=== PATIENT | male | born 1930 | race Caucasian/White ===

== ENCOUNTER 2022-06-21 09:28 | Emergency (ER) | payer OTHER ==
--- OUTSIDE RECORDS SUMMARY | 2022-06-21 09:32 | XMS REPORT | Continuity of Care Document ---
:1930 Author Organization [facility] t Address [address] [place] [address] Care Team Providers Name Role Phone Jacob Neal Attending Clinician Unavailable Ajibade_O_AH Attending Clinician Unavailable Ige-Odunuga_J_AH Attending Clinician Unavailable Ajibade_O_AH Admitting Clinician Unavailable Ige-Odunuga_J_AH Admitting Clinician Unavailable Payers Payer Name Policy Type Policy Number Effective Date Expiration Date S [place] [id number] 2020 [facility] 00:[facility]:00 [place] [id number] [id number] 2020 [facility] 00:00:00 [facility] [place] [id number] 2019 - [employer] 00:00:00 (MEDICARE REPLACEMENT/ADV ANTAGE - HMO) Problems Condition Condition Condition Status Onset Resolution Last Treating Co mments Source Name Details Category Date Date Treatment Clinician Date [id number] Hypothyroi Problem Active Co mmon dism [facility] (acquired) - [facility] [id number] Essential Problem Active Comm on hypertensi Spirit on [facility] [id number] 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 Social History Social Habit Start Date Stop Date Quantity Comments Source History of Tobacco Use Co mmon [facility] Sex Assigned At Com mon [facility] Smoking Status Start Date Stop Date Source Never Smoker Common [facility] Medications Ordered Filled Start Stop Current Ordering Indication Dosage Frequency Signature Comments Components Source Medication Medication Date Date Medication? Clinician (SIG) Name Name Vitamin B12 Vitamin B12 No 1000ug Common (Cyanocobal (Cyanocobal 9-16 S pirit jules) jules) 00:00: [facility] Vitamin B12 Vitamin B12 No 1000ug Common (Cyanocobal (Cyanocobal 9-16 S pirit jules) jules) 00:00: [facility] Vitamin B12 Vitamin B12 No 1000ug Common (Cyanocobal (Cyanocobal 9-16 S pirit jules) jules) 00:00: [facility] Vitamin B12 Vitamin B12 No 1000ug Common (Cyanocobal (Cyanocobal 9-16 S pirit jules) jules) 00:00: - [facility] Primatene Primatene No 1{puff} Primatene Mist 0.125 Mist 0.125 7-12 Mist 0.125 MG/ACT MG/ACT 00:00: MG/ACT 00 Primatene Primatene No 1{puff} Primatene Mist 0.125 Mist 0.125 7-12 Mist 0.125 MG/ACT MG/ACT 00:00: MG/ACT 00 Primatene Primatene No 1{puff} Primatene Mist 0.125 Mist 0.125 7-12 Mist 0.125 MG/ACT MG/ACT 00:00: MG/ACT 00 Primatene Primatene No 1{puff} Primatene Mist 0.125 Mist 0.125 7-12 Mist 0.125 MG/ACT MG/ACT 00:00: MG/ACT 00 Primatene Primatene No 1{puff} Primatene Mist 0.125 Mist 0.125 7-12 Mist 0.125 MG/ACT MG/ACT 00:00: MG/ACT 00 Primatene Primatene No 1{puff} Primatene Mist 0.125 Mist 0.125 7-12 Mist 0.125 MG/ACT MG/ACT 00:00: MG/ACT 00 Primatene Primatene 2020-0 No 1{puff} Primatene Mist 0.125 Mist 0.125 7-12 Mist 0.125 MG/ACT MG/ACT 00:00: MG/ACT 00 Vitamin B12 Vitamin B12 2020-0 No 1000ug Common (Cyanocobal (Cyanocobal 6-18 S pirit jules) jules) 00:00: - [facility] Vitamin B12 Vitamin B12 2020-0 No 1000ug Common (Cyanocobal (Cyanocobal 6-18 S pirit jules) jules) 00:00: - [facility] Vitamin B12 Vitamin B12 2020-0 No 1000ug Common (Cyanocobal (Cyanocobal 6-18 S pirit jules) jules) 00:00: - [facility] Vitamin B12 Vitamin B12 0 No 1000ug Common (Cyanocobal (Cyanocobal 6-18 S pirit jules) jules) 00:00: - [facility] Lisinopril Lisinopril No Lisinopril 20 MG 20 MG 20 MG Lisinopril Lisinopril No 1{table QD Lisinopril 30 MG 30 MG t} 30 MG Metoprolol Metoprolol No 1{table BID Metoprolol Tartrate 25 Tartrate 25 t_with_ Tartrate MG MG food} 25 MG Levothyroxi Levothyroxi No Levothyrox ne Sodium ne Sodium ine Sodium 50 MCG 50 MCG 50 MCG Clopidogrel Clopidogrel No 1{table QD Clopidogre Bisulfate Bisulfate t} l 75 MG 75 MG Bisulfate 75 MG Levothyroxi Levothyroxi No QD Levothyrox ne Sodium ne Sodium ine Sodium 50 MCG 50 MCG 50 MCG Cyanocobala Cyanocobala No Cyanocobal min 1000 min 1000 jules 1000 MCG/ML MCG/ML MCG/ML Pravastatin Pravastatin No 1{table QD Pravastati Sodium 40 Sodium 40 t} n Sodium MG MG 40 MG Lisinopril Lisinopril No Lisinopril 30 MG 30 MG 30 MG Cyanocobala Cyanocobala No Cyanocobal min 1000 min 1000 jules 1000 MCG/ML MCG/ML MCG/ML Sunnyvale & Sunnyvale & No QD [place] & Syringes - Syringes - Syringes - Lisinopril Lisinopril No Lisinopril 30 MG 30 MG 30 MG Lisinopril Lisinopril No Lisinopril 20 MG 20 MG 20 MG [place] & [place] & No QD [place] & Syringes - Syringes - Syringes - Levothyroxi Levothyroxi No QD Levothyrox ne Sodium ne Sodium ine Sodium 50 MCG 50 MCG 50 MCG Lisinopril Lisinopril No 1{table Lisinopril 10 MG 10 MG t} 10 MG Lisinopril Lisinopril No 1{table QD Lisinopril 30 MG 30 MG t} 30 MG Cyanocobala Cyanocobala No Cyanocobal min 1000 min 1000 jules 1000 MCG/ML MCG/ML MCG/ML Clopidogrel Clopidogrel No 1{table QD Clopidogre Bisulfate Bisulfate t} l 75 MG 75 MG Bisulfate 75 MG Pravastatin Pravastatin No 1{table QD Pravastati Sodium 40 Sodium 40 t} n Sodium MG MG 40 MG Metoprolol Metoprolol No Metoprolol Tartrate 25 Tartrate 25 Tartrate MG MG 25 MG Metoprolol Metoprolol No 1{table BID Metoprolol Tartrate 25 Tartrate 25 t_with_ Tartrate MG MG food} 25 MG Levothyroxi Levothyroxi No Levothyrox ne Sodium ne Sodium ine Sodium 50 MCG 50 MCG 50 MCG Cyanocobala Cyanocobala No Cyanocobal min 1000 min 1000 jules 1000 MCG/ML MCG/ML MCG/ML Lisinopril Lisinopril No Lisinopril 30 MG 30 MG 30 MG Lisinopril Lisinopril No Lisinopril 20 MG 20 MG 20 MG Sunnyvale & Sunnyvale & No QD [place] & Syringes - Syringes - Syringes - Levothyroxi Levothyroxi No QD Levothyrox ne Sodium ne Sodium ine Sodium 50 MCG 50 MCG 50 MCG Lisinopril Lisinopril No 1{table Lisinopril 10 MG 10 MG t} 10 MG Lisinopril Lisinopril No 1{table QD Lisinopril 30 MG 30 MG t} 30 MG Cyanocobala Cyanocobala No Cyanocobal min 1000 min 1000 jules 1000 MCG/ML MCG/ML MCG/ML Clopidogrel Clopidogrel No 1{table QD Clopidogre Bisulfate Bisulfate t} l 75 MG 75 MG Bisulfate 75 MG Pravastatin Pravastatin No 1{table QD Pravastati Sodium 40 Sodium 40 t} n Sodium MG MG 40 MG Metoprolol Metoprolol No Metoprolol Tartrate 25 Tartrate 25 Tartrate MG MG 25 MG Metoprolol Metoprolol No 1{table BID Metoprolol Tartrate 25 Tartrate 25 t_with_ Tartrate MG MG food} 25 MG Levothyroxi Levothyroxi No Levothyrox ne Sodium ne Sodium ine Sodium 50 MCG 50 MCG 50 MCG Cyanocobala Cyanocobala No Cyanocobal min 1000 min 1000 jules 1000 MCG/ML MCG/ML MCG/ML Pravastatin Pravastatin No 1{table QD Pravastati Sodium 40 Sodium 40 t} n Sodium MG MG 40 MG Levothyroxi Levothyroxi No Levothyrox ne Sodium ne Sodium ine Sodium 50 MCG 50 MCG 50 MCG Lisinopril Lisinopril No 1{table Lisinopril 10 MG 10 MG t} 10 MG Metoprolol Metoprolol No Metoprolol Tartrate 25 Tartrate 25 Tartrate MG MG 25 MG Lisinopril Lisinopril No 1{table QD Lisinopril 30 MG 30 MG t} 30 MG Cyanocobala Cyanocobala No Cyanocobal min 1000 min 1000 jules 1000 MCG/ML MCG/ML MCG/ML Lisinopril Lisinopril No Lisinopril 20 MG 20 MG 20 MG Clopidogrel Clopidogrel No 1{table QD Clopidogre Bisulfate Bisulfate t} l 75 MG 75 MG Bisulfate 75 MG Sunnyvale & Sunnyvale & No QD [place] & Syringes - Syringes - Syringes - Levothyroxi Levothyroxi No QD Levothyrox ne Sodium ne Sodium ine Sodium 75 MCG 75 MCG 75 MCG Lisinopril Lisinopril No Lisinopril 30 MG 30 MG 30 MG Cyanocobala Cyanocobala No Cyanocobal min 1000 min 1000 jules 1000 MCG/ML MCG/ML MCG/ML Levothyroxi Levothyroxi No QD Levothyrox ne Sodium ne Sodium ine Sodium 75 MCG 75 MCG 75 MCG Levothyroxi Levothyroxi No Levothyrox ne Sodium ne Sodium ine Sodium 50 MCG 50 MCG 50 MCG Lisinopril Lisinopril No 1{table Lisinopril 10 MG 10 MG t} 10 MG Sunnyvale & Sunnyvale & No QD [place] & Syringes - Syringes - Syringes - Lisinopril Lisinopril No 1{table QD Lisinopril 30 MG 30 MG t} 30 MG Cyanocobala Cyanocobala No Cyanocobal min 1000 min 1000 jules 1000 MCG/ML MCG/ML MCG/ML Lisinopril Lisinopril No Lisinopril 30 MG 30 MG 30 MG Lisinopril Lisinopril No Lisinopril 20 MG 20 MG 20 MG Pravastatin Pravastatin No 1{table QD Pravastati Sodium 40 Sodium 40 t} n Sodium MG MG 40 MG Cyanocobala Cyanocobala No Cyanocobal min 1000 min 1000 jules 1000 MCG/ML MCG/ML MCG/ML Metoprolol Metoprolol No Metoprolol Tartrate 25 Tartrate 25 Tartrate MG MG 25 MG Clopidogrel Clopidogrel No 1{table QD Clopidogre Bisulfate Bisulfate t} l 75 MG 75 MG Bisulfate 75 MG Pravastatin Pravastatin No Pravastati Sodium 40 Sodium 40 n Sodium MG MG 40 MG Lisinopril Lisinopril No Lisinopril 30 MG 30 MG 30 MG Metoprolol Metoprolol No 1{table BID Metoprolol Tartrate 25 Tartrate 25 t_with_ Tartrate MG MG food} 25 MG Sunnyv[place] & Sunnyv[place] & No QD [place] & Syringes - Syringes - Syringes - Clopidogrel Clopidogrel No 1{table QD Clopidogre Bisulfate Bisulfate t} l 75 MG 75 MG Bisulfate 75 MG Cyanocobala Cyanocobala No Cyanocobal min 1000 min 1000 jules 1000 MCG/ML MCG/ML MCG/ML Lisinopril Lisinopril No 1{table QD Lisinopril 30 MG 30 MG t} 30 MG Pravastatin Pravastatin No 1{table QD Pravastati Sodium 40 Sodium 40 t} n Sodium MG MG 40 MG Cyanocobala Cyanocobala No Cyanocobal min 1000 min 1000 jules 1000 MCG/ML MCG/ML MCG/ML Levothyroxi Levothyroxi No QD Levothyrox ne Sodium ne Sodium ine Sodium 50 MCG 50 MCG 50 MCG Levothyroxi Levothyroxi No QD Levothyrox ne Sodium ne Sodium ine Sodium 50 MCG 50 MCG 50 MCG Lisinopril Lisinopril No Lisinopril 20 MG 20 MG 20 MG Lisinopril Lisinopril No Lisinopril 30 MG 30 MG 30 MG Pravastatin Pravastatin No 1{table QD Pravastati Sodium 40 Sodium 40 t} n Sodium MG MG 40 MG Sunnyv[place] & [place] & No QD [place] & Syringes - Syringes - Syringes - Lisinopril Lisinopril No 1{table QD Lisinopril 30 MG 30 MG t} 30 MG Clopidogrel Clopidogrel No 1{table QD Clopidogre Bisulfate Bisulfate t} l 75 MG 75 MG Bisulfate 75 MG Lisinopril Lisinopril No Lisinopril 20 MG 20 MG 20 MG Levothyroxi Levothyroxi No QD Levothyrox ne Sodium ne Sodium ine Sodium 50 MCG 50 MCG 50 MCG Cyanocobala Cyanocobala No Cyanocobal min 1000 min 1000 jules 1000 MCG/ML MCG/ML MCG/ML Levothyroxi Levothyroxi No QD Levothyrox ne Sodium ne Sodium ine Sodium 50 MCG 50 MCG 50 MCG Cyanocobala Cyanocobala No Cyanocobal min 1000 min 1000 jules 1000 MCG/ML MCG/ML MCG/ML Metoprolol Metoprolol No 1{table BID Metoprolol Tartrate 25 Tartrate 25 t_with_ Tartrate MG MG food} 25 MG Immunizations Ordered Immunization Filled Immunization Date Status Commen ts Source Name Name Vitamin B12 Vitamin B12 2021-01-08 Completed [facility] (Cyanocobalamin) (Cyanocobalamin) 10:49:00 [facility] Vitamin B12 Vitamin B12 2021-01-08 Completed [facility] (Cyanocobalamin) (Cyanocobalamin) 10:49:00 - [facility] FluAD FluAD 2020-05-20 Completed [facility] 13:33:00 - [facility] FluAD FluAD 2020-05-20 Completed [facility] 13:33:00 [facility] FluAD FluAD 2020-05-20 Completed [facility] 13:33:00 [facility] FluAD FluAD 2020-05-20 Completed [facility] 13:33:00 [facility] FluAD FluAD 2020-05-20 Completed [facility] 13:33:00 [facility] FluAD FluAD 2020-05-20 Completed [facility] 13:33:00 [facility] FluAD FluAD 2020-05-20 Completed [facility] 13:33:00 [facility] Pneumovax (PPSV23) Pneumovax (PPSV23) 2020-05-06 Completed [facility] 13:34:00 [facility] Pneumovax (PPSV23) Pneumovax (PPSV23) 2020-05-06 Completed [facility] 13:34:00 [facility] Pneumovax (PPSV23) Pneumovax (PPSV23) 2020-05-06 Completed [facility] 13:34:00 [facility] Pneumovax (PPSV23) Pneumovax (PPSV23) 2020-05-06 Completed [facility] 13:34:00 [facility] Pneumovax (PPSV23) Pneumovax (PPSV23) 2020-05-06 Completed [facility] 13:34:00 [facility] Pneumovax (PPSV23) Pneumovax (PPSV23) 2020-05-06 Completed [facility] 13:34:00 [facility] Pneumovax (PPSV23) Pneumovax (PPSV23) 2020-05-06 Completed [facility] 13:34:00 [facility] Vital Signs Vital Name Observation Time Observation Value Comments Source height 2022-03-16 10:30:00 72 [in_i] [facility] weight 2022-03-16 10:30:00 142.3 [lb_av] [facility] temperature 2022-03-16 10:30:00 97.2 [degF] [facility] bmi 2022-03-16 10:30:00 19.3 kg/m2 [facility] oximetry 2022-03-16 10:30:00 99 % [facility] respiratory rate 2022-03-16 10:30:00 18 /min Comm on [facility] blood pressure 2022-03-16 10:30:00 142 mm[Hg] [facility] systolic [facility] blood pressure 2022-03-16 10:30:00 77 mm[Hg] [facility] diastolic [facility] height 2021-12-15 08:20:00 72 [in_i] Common S pirit [facility] weight 2021-12-15 08:20:00 140.2 [lb_av] Common [facility] temperature 2021-12-15 08:20:00 97.5 [degF] Common [facility] bmi 2021-12-15 08:20:00 19.01 kg/m2 Common S [facility] oximetry 2021-12-15 08:20:00 100 % Common S [facility] respiratory rate 2021-12-15 08:20:00 18 /min Comm on [facility] blood pressure 2021-12-15 08:20:00 143 mm[Hg] Common [facility] - systolic [facility] blood pressure 2021-12-15 08:20:00 76 mm[Hg] Common [facility] - diastolic [facility] height 2021-11-17 08:10:00 72 [in_i] Common [facility] weight 2021-11-17 08:10:00 139.4 [lb_av] [facility] temperature 2021-11-17 08:10:00 97.3 [degF] Common [facility] bmi 2021-11-17 08:10:00 18.9 kg/m2 [facility] oximetry 2021-11-17 08:10:00 100 % [facility] respiratory rate 2021-11-17 08:10:00 17 /min Comm on [facility] blood pressure 2021-11-17 08:10:00 142 mm[Hg] [facility] - systolic [facility] blood pressure 2021-11-17 08:10:00 76 mm[Hg] Common [facility] - diastolic [facility] height 2021-11-17 08:20:00 72 [in_i] Common [facility] weight 2021-11-17 08:20:00 139.4 [lb_av] [facility] temperature 2021-11-17 08:20:00 97.3 [degF] Common [facility] bmi 2021-11-17 08:20:00 18.9 kg/m2 [facility] oximetry 2021-11-17 08:20:00 100 % Common [facility] respiratory rate 2021-11-17 08:20:00 17 /min Comm on [facility] blood pressure 2021-11-17 08:20:00 142 mm[Hg] Common [facility] - systolic [facility] blood pressure 2021-11-17 08:20:00 76 mm[Hg] Common [facility] - diastolic [facility] height 2021-08-17 08:30:00 72 [in_i] Common [facility] weight 2021-08-17 08:30:00 145.3 [lb_av] [facility] temperature 2021-08-17 08:30:00 98.0 [degF] [facility] bmi 2021-08-17 08:30:00 19.7 kg/m2 [facility] oximetry 2021-08-17 08:30:00 99 % Common [facility] respiratory rate 2021-08-17 08:30:00 16 /min Comm on [facility] blood pressure 2021-08-17 08:30:00 152 mm[Hg] Common [facility] - systolic [facility] blood pressure 2021-08-17 08:30:00 88 mm[Hg] Common [facility] - diastolic [facility] height 2021-04-14 15:40:00 72 [in_i] Common [facility] weight 2021-04-14 15:40:00 144.6 [lb_av] [facility] temperature 2021-04-14 15:40:00 97.4 [degF] [facility] bmi 2021-04-14 15:40:00 19.61 kg/m2 Common S [facility] oximetry 2021-04-14 15:40:00 99 % Common S pirit - [facility] respiratory rate 2021-04-14 15:40:00 16 /min Comm on [facility] blood pressure 2021-04-14 15:40:00 146 mm[Hg] Common [facility] - systolic [facility] blood pressure 2021-04-14 15:40:00 83 mm[Hg] Common [facility] - diastolic [facility] Procedures This patient has no known procedures. Encounters Start End Encounter Admission Attending Care Care Encounter Source Date/Time Date/Time Type Type Clinicians Facility Department ID 2021-12-14 Outpatient Neal, STLMLC STLMLC [id number] Common 11:31:01 Jacob [facility] 2021-11-16 Outpatient Neal, STLMLC STLMLC [id number] Common 11:09:02 Jacob [facility] 2021-08-18 Outpatient Neal, STLMLC STLMLC [id number] Common 14:39:26 Jacob [id number] [facility] 2021-08-18 Outpatient Neal, STLMLC STLMLC [id number] Common 13:49:16 Jacob [id number] [facility] 2021-08-18 Outpatient Neal, STLMLC STLMLC [id number] Common 13:16:29 Jacob [id number] [facility] 2021-08-18 Outpatient Neal, STLMLC STLMLC [id number] Common 13:11:53 Jacob [id number] [facility] 2021-08-18 Outpatient Neal, STLMLC STLMLC [id number] Common 12:39:24 Jacob [id number] [facility] 2021-08-18 Outpatient Neal, STLMLC STLMLC [id number] Common 12:09:45 Jacob [id number] [facility] 2022-03-16 2022-03-16 OFFICE STLMLC STLMLC [id number] Co mmon 00:00:00 00:00:00 VISIT [facility] 4 [facility] 2021-12-15 2021-12-15 OFFICE STLMLC STLMLC [id number] Co mmon 00:00:00 00:00:00 VISIT Spirit ESTAB PT - CHI LEVEL 4 [facility] 2021-11-17 2021-11-17 OFFICE STLMLC STLMLC [id number] Co mmon 00:00:00 00:00:00 VISIT Spirit ESTAB PT - CHI LEVEL 4 [facility] 2021-11-17 2021-11-17 SUB ANNUAL STLMLC STLMLC [id number] Common 00:00:00 00:00:00 MCR Spirit WELLNESS - CHI VISIT [facility] 2021-08-17 2021-08-17 OFFICE STLMLC STLMLC [id number] Co mmon 00:00:00 00:00:00 VISIT Spirit ESTAB PT - CHI LEVEL 4 [facility] 2021-04-30 2021-04-30 (TEL) STLMLC STLMLC [id number] Co mmon 00:00:00 00:00:00 [facility] 2021-04-14 2021-04-14 OFFICE STLMLC STLMLC [id number] Co mmon 00:00:00 00:00:00 VISIT Spirit ESTAB PT - CHI LEVEL 4 [facility] 2021-01-29 2021-01-29 Outpatient STLMLC STLMLC [id number] Common 00:00:00 00:00:00 [facility] 2021-01-08 2021-01-08 Outpatient STLMLC STLMLC [id number] Common 00:00:00 00:00:00 [facility] 2021-01-01 2021-01-01 Outpatient STLMLC STLMLC [id number] Common 00:00:00 00:00:00 [facility] 2020-10-05 2020-10-05 Outpatient STLMLC STLMLC [id number] Common 00:00:00 00:00:00 [facility] 2020-10-05 2020-10-05 Outpatient STLMLC STLMLC [id number] Common 00:00:00 00:00:00 [facility] 2020-07-01 2020-07-01 Outpatient STLMLC STLMLC [id number] Common 00:00:00 00:00:00 [facility] 2020-06-29 2020-06-29 [facility] [id number] Common 00:00:00 00:00:00 [facility] 2020-06-24 2020-06-24 [facility] [id number] Common 00:00:00 00:00:00 [facility] 2020-03-19 2020-03-19 Outpatient Ajibade_O_A VFP [id number] [id number] [facility] 03:35:00 03:35:00 H [id number] [facility] 2019-09-11 2019-09-11 Outpatient Ige-Odunuga VFP VFP [id number] [facility] 07:20:00 07:20:00 _J_ [id number] Family Practic e Results This patient has no known results.
[2022-06-21] MEDS ORDERED: FAMOTIDINE 20 MG/2 ML VIAL IV ONE (10:01)
[2022-06-21] MEDS ORDERED: ONDANSETRON 4 MG/2 ML VIAL ONE (10:01)
[2022-06-21] MEDS ORDERED: NA CHLORIDE 0.9% 500 ML ONE (10:01)
[2022-06-21 10:18] LABS: Absolute Lymphocytes (CBC) 1.3 K/uL (0.7-4.9); Hematocrit 36.3 % (39.6-49.0); Lymphocytes % 23.7 % (15.3-44.8); MCV 97.2 fL (80-100); MPV 8.2 fL (7.6-11.3); RBC Red Blood Cell Count 3.73 M/uL (4.33-5.43)
[2022-06-21] MEDS ORDERED: METOCLOPRAMIDE 10 MG/2mL INJ ONE (10:27)
[2022-06-21 10:35] LABS: Albumin 3.7 g/dL (3.4-5.0); Bilirubin Total 1.2 mg/dL (0.2-1.0); Potassium 3.9 mmol/L (3.5-5.1); Protein, Total 7.4 g/dL (6.4-8.2)
--- NOTE | 2022-06-21 11:48 | RAD REPORT ---
EXAM DESCRIPTION: CT - Abdomen Pelvis W Contrast - 06/21/2022 11:22 am CLINICAL HISTORY: nausea and vomiting COMPARISON: CT ABD PELVIS W CONTRAST dated 10/31/2014 TECHNIQUE: Biphasic, helical CT imaging of the abdomen and pelvis was performed following 100 ml non -ionic IV contrast. Oral contrast: No. All CT scans are performed using dose optimization technique as appropriate and may include automated exposure control or mA/KV adjustment according to patient size. FINDINGS: No suspicious findings in the lung bases. Liver and spleen show no focal parenchymal findings. Gallbladder is absent. Intrahepatic and extrahep atic biliary tree dilatation are present. This biliary tree dilatation is more prominent but not new when compared to 2015. No obstructing duodenal or pancreatic mass seen. Duct stones can be occult on CT imaging. Current finding may still be within normal range for a patient this age that is post chol ecystectomy. Correlation is needed with any biliary obstruction clinical or laboratory findings. 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 There are numerous panc reatic head and uncinate process calcifications. A discrete pancreatic mass is not distinguishable. G eneral fullness of the pancreatic head is similar to 2015. Symmetric renal function is seen with no hydronephrosis or suspicious renal mass. No pyelonephritis o r acute parenchymal process. Anterior bladder wall is slightly thickened but difficult to evaluate wi thout completely filling the bladder. No bladder stones seen. No adrenal abnormalities. Stomach is decompressed which limits assessment. No gross evidence for a gastric mass or abnormal wal l thickening. No dilated large or small bowel. There is diverticulosis without diverticulitis. Modera te stool volume seen throughout the colon. No free air, free fluid or inflammatory stranding. No hernia, mass or bulky lymphadenopathy. Advanced vertebral body, facet joint and disc degenerative changes in the lumbar spine and lower thor acic spine. Acute bony finding is not identifiable. There is prominent bilateral hip joint degenerati ve change. Very dense calcifications of the arterial tree seen. Aorta is dilated to 3 cm at the mesenteric arter y level. At the renal arteries the aorta is 3.1 cm in maximum diameter. Aorta is tortuous. Mid and di stal aorta reach up to 3.1 cm in size. Dense calcifications extend into the iliac vasculature. IMPRESSION: No bowel obstruction, free air or surgically emergent CT abdomen or pelvis finding. Gallbladder is absent. Intrahepatic and extrahepatic biliary tree dilatation is present, increased bu t not new from 2015 imaging. Duct stones can be occult. There is a general fullness to the pancreatic head without a clearly defined mass. Pattern is not sub stantially different from 2015. Correlation is needed with any clinical or laboratory findings of tu iary obstruction. No acute GI or finding. Slight thickening of the anterior urinary bladder wall is probably artifac t of incomplete distention. Aortic aneurysmal dilatation as detailed. Maximum diameter is 3.1 cm. No dissection or acute componen t.
--- NOTE | 2022-06-21 12:08 | ER ---
Nurse's Notes [facility] Name: Angel Luis Butcher Age: 89 yrs Sex: Male : 1930 Arrival Date: 06/21/2022 Time: 09:31 Bed 11 Private MD: Jacob Neal Diagnosis: Nausea with vomiting, unspecified;Dysphagia Presentation: 06/21 09:41 Chief complaint: Patient states: "I've been throwing up everything I eat" [place] and vg1 dysphagia x 1 month. Coronavirus screen: Vaccine status: Patient reports receiving the 2nd dose of the covid vaccine. Client denies travel out of the [place] in the last 14 days. Ebola Screen: Patient negative for fever greater than or equal to 101.5 degrees Fahrenheit, and additional compatible Ebola Virus Disease symptoms. Initial Sepsis Screen: Does the patient meet any 2 criteria? No. Patient's initial sepsis screen is negative. Does the patient have a suspected source of infection? No. Patient's initial sepsis screen is negative. Risk Assessment: Do you want to hurt yourself or someone else?. Onset of symptoms was April 2022. 09:41 Method Of Arrival: Ambulatory vg1 09:41 Acuity: RICHIE 3 vg1 Triage Assessment: 09:49 General: Appears in no apparent distress. comfortable, Behavior is calm, cooperative. vg1 Pain: Complains of pain in throat Pain currently is 5 out of 10 on a pain scale. GI: Reports intolerance of fluids, intolerance of food, nausea, vomiting. Historical: - Allergies: 09:49 No Known Allergies; vg1 - PMHx: 09:49 Hypertensive disorder; Hypercholesterolemia; Hypothyroidism; vg1 - PSHx: 09:49 Coronary artery bypass graft; vg1 - Immunization history:: Client reports receiving the 2nd dose of the Covid vaccine. - Social history:: Smoking status: Patient denies any tobacco usage or history of. Screenin:10 Abuse screen: Denies threats or abuse. Denies injuries from another. Nutritional ld1 screening: No deficits noted. Tuberculosis screening: No symptoms or risk factors identified. Fall Risk None identified. Assessment: 10:10 General: Appears in no apparent distress. comfortable, Behavior is calm, cooperative, ld1 appropriate for age. Pain: Denies pain. Neuro: Level of Consciousness is awake, alert, obeys commands, Oriented to person, place, time, situation, Appropriate for age. Cardiovascular: Capillary refill < 3 seconds Patient's skin is warm and dry. Respiratory: Airway is patent Respiratory effort is even, unlabored. GI: Abdomen is flat, non-distended. GI: Reports nausea, vomiting. : No signs and/or symptoms were reported regarding the genitourinary system. EENT: No signs and/or symptoms were reported regarding the EENT system. Derm: No signs and/or symptoms reported regarding the dermatologic system. Musculoskeletal: No signs and/or symptoms reported regarding the musculoskeletal system. 12:00 Reassessment: Patient appears in no apparent distress at this time. No changes from em6 previously documented assessment. Patient and/or family updated on plan of care and expected duration. Pain level reassessed. Patient is alert, oriented x 3, equal unlabored respirations, skin warm/dry/pink. Vital Signs: 09:41 BP 177 / 98; Pulse 92; Resp 15; Temp 98.5; Pulse Ox 100% ; Weight 63.5 kg; Height 5 ft. vg1 11 in. (180.34 cm); Pain 5/10; 11:58 BP 186 / 102; Pulse 85; Resp 18; Pulse Ox 100% on R/A; em6 09:41 Body Mass Index 19.52 (63.50 kg, 180.34 cm) vg1 ED Course: 09:31 Patient arrived in ED. mr 09:31 Jacob Neal DO is Private Physician. mr 09:33 Akil Rubalcava MD is Attending Physician. jr11 09:49 Triage completed. vg1 09:49 Arm band placed on. vg1 10:09 Breanna Ruano, NORMA is Primary Nurse. ld1 10:09 No provider procedures requiring assistance completed. Inserted saline lock: 20 gauge ld1 in right antecubital area, using aseptic technique. Blood collected. 10:10 Patient has correct armband on for positive identification. Bed in low position. Call ld1 light in reach. Side rails up X2. Pulse ox on. NIBP on. Door closed. Noise minimized. Warm blanket given. 11:24 CT Abd/Pelvis - IV Contrast Only In Process Unspecified. EDMS 12:07 Jostin Escoto MD is Referral Physician. jr11 12:24 IV discontinued, intact, bleeding controlled, No redness/swelling at site. Pressure em6 dressing applied. Administered Medications: 10:09 Drug: NS 0.9% 500 ml Route: IV; Rate: 1 bolus; Site: right antecubital; ld1 12:21 Follow up: Response: No adverse reaction; IV Status: Completed infusion; IV Intake: em6 1000ml 10:09 Drug: Pepcid (famotidine) 20 mg Route: IVP; Site: right antecubital; ld1 10:09 Drug: Zofran (Ondansetron) 4 mg Route: IVP; Site: right antecubital; ld1 10:37 Drug: Reglan (metoCLOPramide) 10 mg Route: IVP; Site: right antecubital; ld1 Medication: 10:10 VIS not applicable for this client. ld1 Intake: 12:21 IV: 1000ml; Total: 1000ml. em6 Outcome: 12:08 Discharge ordered by . kiersten 12:24 Discharged to home via wheelchair. em6 12:24 Condition: stable 12:24 Discharge instructions given to patient, significant other, Instructed on discharge instructions, follow up and referral plans. medication usage, Demonstrated understanding of instructions, follow-up care, medications, Prescriptions given X 1. 12:25 Patient left the ED. em6 Signatures: Dispatcher [employer] JULITOME Eda Fuentes Victoria, RN RN vg1 Breanna Ruano RN RN ld1 Akil Rubalcava MD MD jr11 Melissa Oakes RN RN em6
--- NOTE | 2022-06-21 12:08 | EDPHYS ---
Physician Documentation [facility] Name: Angel Luis Butcher Age: 89 yrs Sex: Male : 1930 Arrival Date: 06/21/2022 Time: 09:31 Bed 11 Private MD: Ángel [facility] ED Physician Akil Rubalcava HPI: 06/21 09:50 This 89 yrs old Male presents to ER via Ambulatory with complaints of Nausea/Vomiting. jr11 09:50 The patient presents to the emergency department with nausea, that is moderate, jr11 vomiting, about 2x per day, "food does not stay down", No pain, no diarrhea. Onset: The symptoms/episode began/occurred 1 month(s) ago. Possible causes: unknown. The symptoms are aggravated by food , The symptoms are alleviated by nothing. Associated signs and symptoms: Pertinent positives: nausea, vomiting, Pertinent negatives: diarrhea, fever. Severity of symptoms: At their worst the symptoms were moderate in the emergency department the symptoms are unchanged. Historical: - Allergies: 09:49 No Known Allergies; vg1 - PMHx: 09:49 Hypertensive disorder; Hypercholesterolemia; Hypothyroidism; vg1 - PSHx: 09:49 Coronary artery bypass graft; vg1 - Immunization history:: Client reports receiving the 2nd dose of the Covid vaccine. - Social history:: Smoking status: Patient denies any tobacco usage or history of. ROS: 09:50 All other systems are negative. jr11 Exam: 09:50 Constitutional: This is a well developed, well nourished patient who is awake, alert, jr11 and in no acute distress. Head/Face: Normocephalic, atraumatic. Eyes: Extra-ocular motions intact. Lids and lashes normal. Conjunctiva and sclera are non-icteric and not injected. Cornea within normal limits. Periorbital areas with no swelling, redness, or edema. ENT: Nares patent. No nasal discharge, no septal abnormalities noted. Oropharynx with no redness, swelling, or masses, exudates, or evidence of obstruction, uvula midline. Mucous membranes moist. Neck: Trachea midline, no thyromegaly or masses palpated, and no cervical lymphadenopathy. Supple, full range of motion without nuchal rigidity, or vertebral point tenderness. No Meningismus. Chest/axilla: Normal chest wall appearance and motion. Nontender with no deformity. No lesions are appreciated. Cardiovascular: Regular rate and rhythm with a normal S1 and S2. No gallops, murmurs, or rubs. Normal PMI, no JVD. No pulse deficits. Respiratory: Lungs have equal breath sounds bilaterally, clear to auscultation and percussion. No rales, rhonchi or wheezes noted. No increased work of breathing, no retractions or nasal flaring. Abdomen/GI: Soft, non-tender, with normal bowel sounds. No distension or tympany. No guarding or rebound. No evidence of tenderness throughout. Back: No spinal tenderness. No costovertebral tenderness. Full range of motion. Skin: Warm, dry with normal turgor. Normal color with no rashes, no lesions, and no evidence of cellulitis. MS/ Extremity: Pulses equal, no cyanosis. Neurovascular intact. Full, normal range of motion. Vital Signs: 09:41 BP 177 / 98; Pulse 92; Resp 15; Temp 98.5; Pulse Ox 100% ; Weight 63.5 kg; Height 5 ft. vg1 11 in. (180.34 cm); Pain 5/10; 11:58 BP 186 / 102; Pulse 85; Resp 18; Pulse Ox 100% on R/A; em6 09:41 Body Mass Index 19.52 (63.50 kg, 180.34 cm) vg1 MDM: 09:50 Differential diagnosis: Nonspecific abd pain, viral gastroenteritis, gastroenteritis, jr11 dyspahgia. Data reviewed: vital signs, nurses notes. ED course: Pt feels scratchy throat and feels he "cannot hold food down" x 1 month with weight loss, progressively worse, no pain. 09:53 Patient medically screened. jr11 10:09 ED course: EKG interpreted by me shows normal sinus rhythm, normal axis, normal jr11 intervals, no acute ST changes. EKG otherwise normal.. 12:06 ED course: CARLOS EDUARDO Escoto can see him tomorrow, will instruct fam to call today. jr11 06/21 09:48 Order name: CBC with Diff; Complete Time: 10:27 06/21 09:48 Order name: CMP; Complete Time: 10:47 11 06/21 09:48 Order name: Lipase; Complete Time: 10:47 11 06/21 10:48 Order name: CT Abd/Pelvis - IV Contrast Only; Complete Time: 11:53 06/21 09:48 Order name: IV Saline Lock; Complete Time: 09:52 06/21 09:48 Order name: Labs collected and sent; Complete Time: 09:52 06/21 09:48 Order name: PO challenge: 15 min after zofran with solid food; Complete Time: 11:47 06/21 09:48 Order name: EKG; Complete Time: 09:49 [facility] Administered Medications: 10:09 Drug: NS 0.9% 500 ml Route: IV; Rate: 1 bolus; Site: right antecubital; ld1 12:21 Follow up: Response: No adverse reaction; IV Status: Completed infusion; IV Intake: em6 1000ml 10:09 Drug: Pepcid (famotidine) 20 mg Route: IVP; Site: right antecubital; ld1 10:09 Drug: Zofran (Ondansetron) 4 mg Route: IVP; Site: right antecubital; ld1 10:37 Drug: Reglan (metoCLOPramide) 10 mg Route: IVP; Site: right antecubital; ld1 Disposition Summary: 06/21/22 12:08 Discharge Ordered Location: Home [facility] Condition: Stable [facility] Diagnosis - Nausea with vomiting, unspecified jr11 - Dysphagia 11 Followup: 11 - With: Jostin Escoto MD - When: 1 - 2 days - Reason: Recheck today's complaints Discharge Instructions: - Discharge Summary Sheet [facility] - Nausea and Vomiting, Adult [facility] Forms: - Medication Reconciliation Form [facility] - Thank You Letter 11 - Antibiotic Education jr11 - Prescription Opioid Use [facility] Prescriptions: - Reglan 10 mg Oral Tablet - take 1 tablet by ORAL route every 6 hours take 30 minutes before meals and at [facility] bedtime; 20 tablet; Refills: 0, Product Selection Permitted Signatures: Dispatcher [employer] Mamta Centeno RN RN vg1 Breanna Ruano RN RN ld1 Akil Rubalcava MD MD jr11 Melissa Oakes RN em6
[2022-06-21 12:29] VITALS: TEMP 98.5; O2SAT 100
[2022-06-21 12:30] VITALS: BP 186/102
--- NOTE | 2022-06-22 16:28 | EKG ---
Test Date: 2022-06-21 Test Time: 10:00:14 Printer Maintainer: PHUONG MEASUREMENT RESULTS: Intervals: Rate: 82 NE: 152 QRSD: 84 QT: 348 QTc: 406 Wallace: P: 90 NE: 152 QRS: 42 T: 58 INTERPRETIVE STATEMENTS: Normal sinus rhythm Normal ECG Compared to ECG 10/31/2014 11:38:59 Atrial premature complex(es) no longer present Ventricular premature complex(es) no longer present Electronically Signed On 06-22-22 16:23:16 UNIT AIDE TECH by Sergio Lundberg
== END 2022-06-21 12:25 | disposition home or self-care (01) ==
LOC: ER 09:28
DX: R11.2 Nausea with vomiting, unspecified (principal); R13.10 Dysphagia, unspecified; I10 Essential (primary) hypertension; Z95.1 Presence of aortocoronary bypass graft
CPT/HCPCS: 85025; 36415; 83690; 80053; 74177; Q9967; J2765; J7040; J2405; 93005; 96361; 96374; 96375; 99284